=== PATIENT | female | born 1945 | race Caucasian/White ===

== ENCOUNTER 2018-01-30 18:56 | Inpatient (IN) | payer MEDICARE, OTHER ==
[~2018-01-30] VITALS: Ht 157.5 cm; Wt 78.5 kg
--- NOTE | 2018-01-30 19:12 | NUR ---
PT TO ER BED 4. [facility] C/O ABD/FLANK PAIN AFTER GLF YESTERDAY. SEEN IN [facility] ER FOR FALL. PT PLACED IN GOWN AND ON COLLABORATING SUPERVISING PHYSICIAN. VSS/RESP EVEN UNLABORED/NAD NOTED/SKIN WARM AND DRY/AFEBRILE/DENIES N-V-D/AOX4. AWAITNG MD JAY.
[2018-01-30] MEDS ORDERED: IV NS 0.9% 1,000 ML BAG IV ONE (19:30)
[2018-01-30] MEDS ORDERED: MORPHINE SULFATE INJ 2 MG/ML DISP.SYRIN IV ONE (19:30)
[2018-01-30] MEDS ORDERED: ONDANSETRON HCL/PF 4 MG/2 ML VIAL IVP ONE (19:30)
[2018-01-30 19:34] LABS: BASOPHILS % (AUTO) 0.5 % (0.0-2.0); EOSINOPHILS % (AUTO) 0.6 % (0.0-6.0); HEMATOCRIT 37 % (33-45); HEMOGLOBIN 11.9 g/dL (11.5-14.8); LYMPHOCYTES # (AUTO) 1.1 /CMM (0.8-4.8); LYMPHOCYTES % (AUTO) 22.9 % (20.0-44.0); MEAN CORPUSCULAR HEMOGLOBIN 30 PG (26.0-33.0); MEAN CORPUSCULAR HGB CONC 33 g/dl (31.0-36.0); MEAN CORPUSCULAR VOLUME 91 fL (82-100); MONOCYTES # (AUTO) 0.2 /CMM (0.1-1.30); MONOCYTES % (AUTO) 5.2 % (2.0-12.0); NEUTROPHILS # (AUTO) 3.4 /CMM (1.8-8.9); NEUTROPHILS % (AUTO) 70.8 % (43.0-81.0); PLATELET COUNT (AUTO) 222 /CMM (150-450); RDW COEFFICIENT OF VARIATION 14.5 (11.5-15.0); RED BLOOD CELL COUNT(AUTO) 4.02 MIL/uL (4.0-5.2); WHITE BLOOD COUNT (AUTO) 4.7 K/uL (4.3-11.0)
--- NOTE | 2018-01-30 19:35 | NUR ---
20G IV TO R FA X 1 ATTEMPT USING ASEPTIC TECH, BLOOD HANDED OVER TO THE LAB AT BEDSIDE. IV FLUSHES EASILY WITH NS, NO S/S INFILTRATION NOTED AT THIS TIME.
[2018-01-30] MEDS ORDERED: MORPHINE SULFATE INJ 4 MG/ML DISP.SYRIN ONE (19:37)
[2018-01-30] MEDS ORDERED: ONDANSETRON HCL/PF 4 MG/2 ML VIAL ONE (19:37)
[2018-01-30 19:44] LABS: CALCIUM, SERUM 8.7 mg/dL (8.5-10.1); CARBON DIOXIDE 24 mmol/L (21-32); CHLORIDE 104 mmol/L (98-107); CREATININE 0.7 mg/dL (0.6-1.3); GLUCOSE 114 mg/dL (74-106); POTASSIUM 3.9 mmol/L (3.5-5.1); SODIUM SERUM 136 mmol/L (136-145); UREA NITROGEN, BLOOD 15 mg/dL (7-18)
--- NOTE | 2018-01-30 19:53 | NUR ---
PATIENT ASSIGNED TO [facility] 206-2 DX ABD PAIN
--- NOTE | 2018-01-30 20:22 | NUR ---
REPORT GIVEN TO LUISA RILEY FOR LETY. PT TBA [facility] 206.2.
--- NOTE | 2018-01-30 20:29 | NUR ---
PT TRANSPORTED TO [facility] 206.2 VIA STRETCHER WITH EMT, VSS.
--- NOTE | 2018-01-30 20:37 | NUR ---
RN NOTES RECEIVED PATIENT FROM THE ER FOR DX GROUND LEVEL FLOOR. PATIENT AO X 3, ABLE TO MAKE NEED KNOWN. NO ACUTE DISTRESS NOTED. PAIN ON RIGHT SIDE OF BODY AT THIS TIME. SKIN INTACT. IV SITE PATENT, INTACT; FLUSHED. SAFETY REMINDERS GIVEN. ON LOW BED WITH BILATERAL UPPER SIDE RAILS UP. CALL CASTRO WITHIN EASY REACH. WILL CONTINUE TO MONITOR.
[2018-01-30 20:40] VITALS: BP 147/90
[2018-01-30] MEDS ORDERED: TEMA15CA PO (21:57)
[2018-01-30] MEDS ORDERED: ASPI-1169 PO (21:57)
[2018-01-30] MEDS ORDERED: AMAN100T PO (21:57)
[2018-01-30] MEDS ORDERED: TOPI50TA PO (21:57)
[2018-01-30 22:24] LABS: ALBUMIN 3.3 g/dL (3.4-5.0); BILIRUBIN,DIRECT 0.1 mg/dL (0.0-0.2); BILIRUBIN,TOTAL 0.6 mg/dL (0.2-1.0); TOTAL PROTEIN, SERUM 7.8 g/dL (6.4-8.2)
[2018-01-30] MEDS ORDERED: MAG HYDROX/AL HYDROX/SIMETH 30 ML UDC PO PRN (22:30)
[2018-01-30] MEDS ORDERED: MAGNESIUM HYDROXIDE 30 ML UDC PO PRN (22:30)
[2018-01-30] MEDS ORDERED: Z GUARD REMEDY 2 OZ OINT TP PRN (22:30)
[2018-01-30] MEDS ORDERED: ONDANSETRON HCL/PF 4 MG/2 ML VIAL IVP PRN (22:30)
[2018-01-30] MEDS ORDERED: HYDROCODONE/APAP 5/325MG 1 EACH TABLET PO PRN (22:30)
[2018-01-30] MEDS ORDERED: ACETAMINOPHEN 325 MG TABLET PO PRN (22:30)
[2018-01-30] MEDS ORDERED: MORPHINE SULFATE INJ 2 MG/ML DISP.SYRIN IV PRN (22:30)
[2018-01-30 23:19] VITALS: BP 147/90
[2018-01-31] MEDS: HYDROCODONE/APAP 10/325MG 1 EA TABLET PO PRN ×4 (02:14→21:53)
--- NOTE | 2018-01-31 02:14 | NUR ---
MS RN NOTE - [place] Patient complained of generalized pain, worse with movement/position change. Rated at approximately 8/10. Patient requested pain medication. PO [place] 10/325mg administered per prn orders. Rvi (RN for patient) currently on break; checked with Rvi prior to administering.
[2018-01-31 03:58] VITALS: BP 147/90
--- NOTE | 2018-01-31 06:12 | NUR ---
RN NOTES PATIENT ASLEEP, EASILY AROUSABLE. RESPIRATIONS EVEN. NO SIGNS OF PAIN NOTED. NEEDS ATTENDED. KEPT CLEAN AND DRY. WILL GIVE REPORT TO DAY SHIFT FOR CONTINUITY OF CARE.
[2018-01-31] MEDS: PANTOPRAZOLE 40 MG TABLET.DR PO SCH (06:37)
--- NOTE | 2018-01-31 07:43 | NUR ---
MS RN OPENING NOTES RECEIVED PT FROM NIGHTSHIFT NURSE IN STABLE CONDITION. PT IS A/O X3. NO SOB OR ACUTE SIGNS OF DISTRESS NOTED. BREATHING IS EVEN AND UNLABORED. PT ON RA AND SATING WELL. SHE DENIES PAIN AT THIS TIME. IV TO RIGHT FA NOTED TO BE PATENT AND INTACT. NO REDNESS OR SIGNS OF INFILTRATION NOTED. BED IN LOW LOCKED POSITION, SIDE RAILS UP X2, CALL LIGHT WITHIN REACH. WILL CONTINUE TO MONITOR
[2018-01-31 08:00] VITALS: BP 128/77
[2018-01-31 08:00] LABS: ALANINE AMINOTRANSFERASE 66 U/L (12-78); ALBUMIN 2.9 g/dL (3.4-5.0); ALKALINE PHOSPHATASE 165 U/L (46-116); ASPARTATE AMINOTRANSFERASE 68 U/L (15-37); BILIRUBIN,DIRECT 0.1 mg/dL (0.0-0.2); BILIRUBIN,TOTAL 0.6 mg/dL (0.2-1.0); CALCIUM, SERUM 8.4 mg/dL (8.5-10.1); CARBON DIOXIDE 25 mmol/L (21-32); CHLORIDE 110 mmol/L (98-107); CREATININE 0.7 mg/dL (0.6-1.3); GLUCOSE 105 mg/dL (74-106); MAGNESIUM 1.9 mg/dL (1.8-2.4); PHOSPHORUS 2.7 mg/dL (2.5-4.9); POTASSIUM 3.8 mmol/L (3.5-5.1); SODIUM SERUM 146 mmol/L (136-145); TOTAL PROTEIN, SERUM 6.9 g/dL (6.4-8.2); UREA NITROGEN, BLOOD 11 mg/dL (7-18)
[2018-01-31 08:03] LABS: BASOPHILS % (AUTO) 0.8 % (0.0-2.0); EOSINOPHILS % (AUTO) 1.6 % (0.0-6.0); HEMATOCRIT 35 % (33-45); HEMOGLOBIN 11.6 g/dL (11.5-14.8); LYMPHOCYTES # (AUTO) 1.2 /CMM (0.8-4.8); LYMPHOCYTES % (AUTO) 29.2 % (20.0-44.0); MEAN CORPUSCULAR HEMOGLOBIN 30 PG (26.0-33.0); MEAN CORPUSCULAR HGB CONC 33 g/dl (31.0-36.0); MEAN CORPUSCULAR VOLUME 92 fL (82-100); MONOCYTES # (AUTO) 0.3 /CMM (0.1-1.30); MONOCYTES % (AUTO) 7.2 % (2.0-12.0); NEUTROPHILS # (AUTO) 2.5 /CMM (1.8-8.9); NEUTROPHILS % (AUTO) 61.2 % (43.0-81.0); PLATELET COUNT (AUTO) 202 /CMM (150-450); RDW COEFFICIENT OF VARIATION 14.7 (11.5-15.0); RED BLOOD CELL COUNT(AUTO) 3.83 MIL/uL (4.0-5.2); WHITE BLOOD COUNT (AUTO) 4.1 K/uL (4.3-11.0)
[2018-01-31 08:07] LABS: CHOLESTEROL 194 mg/dL (<200); HDL CHOLESTEROL 41 mg/dL (40-60); LDL 130 mg/dL (0-99)
[2018-01-31] MEDS: DOCUSATE SODIUM 100 MG CAPSULE PO SCH ×2 (08:22→16:20)
[2018-01-31] MEDS: ASPIRIN 81 MG TAB.CHEW PO SCH (08:22)
[2018-01-31] MEDS: TOPIRAMATE 25 MG TABLET PO SCH ×2 (08:23→16:20)
[2018-01-31 08:28] LABS: TRIGLYCERIDES 177 mg/dL (30-150)
[2018-01-31] MEDS: MORPHINE SULFATE INJ 4 MG/ML DISP.SYRIN IV PRN ×2 (14:47→19:54)
[2018-01-31 16:00] VITALS: BP 116/86
[2018-01-31 18:44] LABS: APPEARANCE,URINE SL CLOUDY (CLEAR); BILIRUBIN,URINE NEGATIVE (NEGATIVE); BLOOD, URINE NEGATIVE Ery/uL (NEGATIVE); COLOR,URINE YELLOW (YELLOW); KETONES,URINE NEGATIVE (NEGATIVE); LEUKOCYTE ESTERASE ,URINE 1+ (NEGATIVE); NITRITE, URINE NEGATIVE (NEGATIVE); PROTEIN,URINE NEGATIVE (NEGATIVE); UGLUCOSE NEGATIVE (NEGATIVE); UROBILINOGEN,URINE 0.2 EU/dL (0.2)
--- NOTE | 2018-01-31 19:08 | NUR ---
MS RN CLOSING NOTES PT REMAINS STABLE. ALL NEEDS WERE MET DURING SHIFT AND ORDERS CARRIED OUT ACCORDINGLY . ALL DUE MEDS GIVEN. SHE DENIES PAIN AT THIS TIME. IV REMAINS PATENT AND INTACT. SAFETY MEASURES REMAINS IN PLACE. WILL ENDORSE TO NIGHTSHIFT NURSE FOR LETY.
--- NOTE | 2018-01-31 19:20 | NUR ---
MS RN OPENING NOTES: RECEIVED PT ON ROOM AIR AND IS TOLERATING WELL. PT IS COMPLAINING OF PAIN AT THIS TIME IN HER R FLANK/ABDOMINAL AREA. PT HAS R FOREARM #20G AND IS PATENT AND INTACT. CURRENTLY H/L. CALL LIGHT WITHIN PT'S REACH. BED ALARM ACTIVATED. BED KEPT IN LOW, LOCKED POSITION, AND SIDE RAILS X 2UP. WILL CONTINUE TO MONITOR PT.
[2018-01-31 19:28] LABS: BACTERIA,URINE Many /HPF (None Seen); RBC,URINE 0-2 /HPF (0-2); SQUAMOUS EPITHELIAL CELL,UR Few /HPF (None Seen)
[2018-01-31 20:44] VITALS: BP 137/86
[2018-01-31] MEDS: TEMAZEPAM 15 MG CAPSULE PO SCH (21:49)
[2018-02-01] MEDS: MORPHINE SULFATE INJ 4 MG/ML DISP.SYRIN IV PRN ×2 (01:46→08:35)
--- NOTE | 2018-02-01 06:51 | NUR ---
MS RN CLOSING NOTES: ALL NEEDS WERE ATTENDED AND ANTICIPATED FOR. PT KEPT CLEAN, DRY, AND COMFORTABLE. PT IS RESTING COMFORTABLY IN BED. PT HAS IV ON R FOREARM #20G AND IS PATENT AND INTACT. CURRENTLY H/L. CALL LIGHT WITHIN PT'S REACH. BED KEPT IN LOW, LOCKED POSITION, AND SIDE RAILS X 2UP. BED ALARM ACTIVATED. WILL ENDORSE TO AM NURSE FOR LETY.
[2018-02-01 07:57] LABS: BASOPHILS % (AUTO) 0.3 % (0.0-2.0); EOSINOPHILS % (AUTO) 1.5 % (0.0-6.0); HEMATOCRIT 36 % (33-45); LYMPHOCYTES # (AUTO) 1.4 /CMM (0.8-4.8); LYMPHOCYTES % (AUTO) 26.2 % (20.0-44.0); MEAN CORPUSCULAR HEMOGLOBIN 31 PG (26.0-33.0); MEAN CORPUSCULAR HGB CONC 34 g/dl (31.0-36.0); MEAN CORPUSCULAR VOLUME 92 fL (82-100); MONOCYTES # (AUTO) 0.3 /CMM (0.1-1.30); MONOCYTES % (AUTO) 6.3 % (2.0-12.0); NEUTROPHILS # (AUTO) 3.4 /CMM (1.8-8.9); NEUTROPHILS % (AUTO) 65.7 % (43.0-81.0); PLATELET COUNT (AUTO) 212 /CMM (150-450); RED BLOOD CELL COUNT(AUTO) 3.85 MIL/uL (4.0-5.2); WHITE BLOOD COUNT (AUTO) 5.2 K/uL (4.3-11.0)
[2018-02-01 08:00] VITALS: BP 142/81
--- NOTE | 2018-02-01 08:00 | NUR ---
MS LUISA AM NOTES: RECEIVED PT AWAKE,ALERT AND VERBALLY RESPONSIVE.ON ROOM AIR AND IS TOLERATING WELL. PT IS COMPLAINING OF PAIN ON IN HER R FLANK SIDE OF THE BODY D/T S/P FALL.MORPHINE 1 MG IV GIVEN FOR PAIN MGT. PT HAS R FOREARM #20G AND IS PATENT AND INTACT. CURRENTLY H/L. CALL LIGHT WITHIN PT'S REACH. BED ALARM ACTIVATED. BED KEPT IN LOW, LOCKED POSITION, AND SIDE RAILS X 2UP. WILL CONTINUE TO MONITOR PT.
[2018-02-01 08:03] LABS: CALCIUM, SERUM 8.6 mg/dL (8.5-10.1); CARBON DIOXIDE 25 mmol/L (21-32); CHLORIDE 106 mmol/L (98-107); CREATININE 0.7 mg/dL (0.6-1.3); GLUCOSE 116 mg/dL (74-106); POTASSIUM 3.7 mmol/L (3.5-5.1); SODIUM SERUM 141 mmol/L (136-145); UREA NITROGEN, BLOOD 11 mg/dL (7-18)
[2018-02-01] MEDS: ASPIRIN 81 MG TAB.CHEW PO SCH (08:34)
[2018-02-01] MEDS: PANTOPRAZOLE 40 MG TABLET.DR PO SCH (08:34)
[2018-02-01] MEDS: LEVOTHYROXINE SODIUM 25 MCG TABLET PO SCH (08:34)
[2018-02-01] MEDS: AMANTADINE HCL 100 MG CAPSULE PO SCH (08:34)
[2018-02-01] MEDS: TOPIRAMATE 25 MG TABLET PO SCH ×2 (08:34→18:07)
[2018-02-01] MEDS: DOCUSATE SODIUM 100 MG CAPSULE PO SCH ×2 (08:34→18:07)
--- NOTE | 2018-02-01 11:52 | NUR ---
PT AMBULATED WITH P.T. USING FWW.WITH CONTACT GUARD ASSIST DURING AMBULATION USING FWW AND MIN ASSIST IN BED TRANSFERS.PT TOLERATED WELL.
[2018-02-01] MEDS: HYDROCODONE/APAP 10/325MG 1 EA TABLET PO PRN ×2 (13:59→18:08)
[2018-02-01 16:00] VITALS: BP 146/90
--- NOTE | 2018-02-01 18:00 | NUR ---
ASSISTED BACK TO BED FROM THE COMMODE.PAIN MGT GIVEN DUE TO RT UPPER BODY PAIN-WITH EFFECTIVE RESULTS.WILL MONITOR CALL LIGHT PLACED WITHIN REACH.
--- NOTE | 2018-02-01 19:38 | NUR ---
MS RN OPENING NOTES: RECEIVED PT ON ROOM AIR AND IS TOLERATING WELL. PT RESTING IN BED COMFORTABLY. PT HAS IV ON R FOREARM #20G AND IS PATENT AND INTACT. CURRENTLY H/L. BED ALARM ACTIVATED. CALL LIGHT WITHIN PT'S REACH. BED KEPT IN LOW, LOCKED POSITION, AND SIDE RAILS X 2UP. WILL CONTINUE TO MONITOR PT.
[2018-02-01 20:00] VITALS: BP 140/75
[2018-02-01] MEDS: TEMAZEPAM 15 MG CAPSULE PO SCH ×2 (22:00→22:26)
--- NOTE | 2018-02-01 23:00 | NUR ---
MS RN OPENING NOTES: PT APPEARS TO BE LETHARGIC. NON-ADMIN RESTORIL 15MG PO. WILL CONTINUE TO MONITOR PT.
[2018-02-02] MEDS: HYDROCODONE/APAP 10/325MG 1 EA TABLET PO PRN ×3 (02:38→16:05)
--- NOTE | 2018-02-02 06:57 | NUR ---
MS RN CLOSING NOTES: ALL NEEDS WERE ATTENDED AND ANTICIPATED FOR. PT KEPT CLEAN, DRY, AND COMFORTABLE. PT ON ROOM AIR AND TOLERATING WELL. PT HAS IV ON RIGHT FOREARM #20G AND IS PATENT AND INTACT. CURRENTLY H/L. CALL LIGHT WITHIN PTS' REACH. BED KEPT IN LOW, LOCKED POSITION, AND SIDE RAILS X 2UP. BED ALARM ACTIVATED. WILL ENDORSE TO AM NURSE FOR LETY.
[2018-02-02 08:00] VITALS: BP 114/66
--- NOTE | 2018-02-02 08:00 | NUR ---
MS LUISA AM NOTES: RECEIVED PT AWAKE,ALERT AND VERBALLY RESPONSIVE.ON ROOM AIR AND IS TOLERATING WELL. PT IS COMPLAINING OF PAIN ON HER RT UPPER BODY D/T S/P FALL.[place] 10/325 MG PO GIVEN PRN FOR PAIN MGT. PT HAS R FOREARM #20G AND IS PATENT AND INTACT. CURRENTLY H/L. CALL LIGHT WITHIN PT'S REACH. BED ALARM ACTIVATED. BED KEPT IN LOW, LOCKED POSITION, AND SIDE RAILS X 2UP. WILL CONTINUE TO MONITOR PT.
[2018-02-02] MEDS: TOPIRAMATE 25 MG TABLET PO SCH ×2 (08:53→16:05)
[2018-02-02] MEDS: ASPIRIN 81 MG TAB.CHEW PO SCH (08:53)
[2018-02-02] MEDS: LEVOTHYROXINE SODIUM 25 MCG TABLET PO SCH (08:53)
[2018-02-02] MEDS: AMANTADINE HCL 100 MG CAPSULE PO SCH (08:54)
[2018-02-02] MEDS: PANTOPRAZOLE 40 MG TABLET.DR PO SCH (08:54)
[2018-02-02] MEDS: DOCUSATE SODIUM 100 MG CAPSULE PO SCH ×2 (08:54→16:05)
[2018-02-02] MEDS ORDERED: DOCU-141 PO (11:31)
[2018-02-02] MEDS ORDERED: LEVO25TA7 PO (11:31)
[2018-02-02] MEDS ORDERED: HYDR-3972 PO (11:31)
[2018-02-02] MEDS ORDERED: LEVO500T75 PO (11:35)
[2018-02-02] MEDS ORDERED: ENOX40DI SUBCUT (11:35)
[2018-02-02] MEDS ORDERED: LEVOFLOXACIN (500MG) 500 MG TABLET PO SCH (12:00)
[2018-02-02 16:00] VITALS: BP 116/68
--- NOTE | 2018-02-02 17:30 | NUR ---
DISCHARGED TO [facility] WITH DISCHARGE INSTRUCTIONS,PRESCRIPTIONS AND BELONGINGS.GIVEN REPORT TO LUISA CURRAN OF [facility].IV H/L REMOVED TO [facility] WITHOUT BLEEDING NOTED.INSTRUCTED TO CONTINUE LEVAQUIN 500 MG PO FOR UTI FOR 6 MORE DAYS.INITIAL DOSE OF LEVAQUIN GIVEN HERE AT 12NN INSTRUCTED TO CONTINUE WITH THE NEW PRESCRIPTIONS ORDERED.DISCHARGED WITH STABLE V/S.
== END 2018-02-02 17:30 | DRG 605 ==
LOC: ER 18:57 → MEDSG2 20:14
PROVIDERS: ADMIT Registered Nurse; ATTEND Registered Nurse
DX: S20.219A Contusion of unspecified front wall of thorax, initial encounter (principal); D68.59 Other primary thrombophilia; N39.0 Urinary tract infection, site not specified; S09.90XA Unspecified injury of head, initial encounter; W18.30XA Fall on same level, unspecified, initial encounter; Y92.89 Other specified places as the place of occurrence of the external cause; F31.9 Bipolar disorder, unspecified; G70.00 Myasthenia gravis without (acute) exacerbation; E66.01 Morbid (severe) obesity due to excess calories; I25.2 Old myocardial infarction; E03.9 Hypothyroidism, unspecified; Z90.49 Acquired absence of other specified parts of digestive tract; R74.0 Nonspecific elevation of levels of transaminase and lactic acid dehydrogenase [LDH]
CPT/HCPCS: 36415; 80048-TC; 80061-TC; 80076-TC; 81000-TC; 83735-TC; 84100-TC; 84443-TC; 85025-TC; 87081-TC; 87086-TC; 87186-TC; 97110-TC; 97116-TC; 97530-TC; A4606; J2270; J2405; J7030; Z7610